=== PATIENT | male | born 1975 ===

== ENCOUNTER 2018-01-29 18:26 | Emergency (ER) | payer MEDICAID ==
--- NOTE | 2018-01-29 18:42 | Emergency Department Record ---
History of Present Illness - General Chief Complaint: Ankle/Foot Injury Stated Complaint: LT ANKLE PAIN/SWELLING Time Seen by Provider: 01/29/18 18:39 Source: Patient Mode of Arrival: Wheelchair Limitations: No limitations - History of Present Illness Initial Comments: 42 yo male presents with a left ankle injury. He fell down 4 steps. No knee or foot pain. No deformity. He has isolated ankle pain. No foot or Achilles pain. No other complaints or injuries. The patient declined pain medication at this time. Pain is controlled. PCP is the [facility]. MD Complaint: Ankle injury Onset/Timin -: Hour(s) Injury: Ankle: Left Type of Injury: Unknown Place: Home Severity: Moderate Severity scale (1-10): 9 Improves With: Immobilization, Rest Worsens With: Weight bearing Context: Walking Associated Symptoms: Swelling, Able to partially bear weight - Related Data Home Medications Medication Instructions Recorded Confirmed Last Taken No Home Med [NO HOME MEDS] 01/29/18 01/29/18 Unknown Allergies Allergy/AdvReac Type Severity Reaction Status Date / Time No Known Allergies Allergy PT UNSURE Unverified 01/29/18 18:31 OF REACTION Travel Screening - Travel/Exposure Within Last 30 Days Have you traveled within the last 30 days?: No - Travel/Exposure Within Last Year Have you traveled outside the [place] in the last year?: No - Additonal Travel Details Have you been exposed to anyone with a communicable illness?: No - Travel Symptoms Symptom Screening: None Past Medical History - SOCIAL HISTORY Smoking Status: Current every day smoker Alcohol Use: None Drug Use: None - RESPIRATORY Hx Respiratory Disorders: No - CARDIOVASCULAR Hx Cardio Disorders: No - NEURO Hx Neuro Disorders: No - GI Hx GI Disorders: No - Hx Genitourinary Disorders: No - ENDOCRINE Hx Endocrine Disorders: No - MUSCULOSKELETAL Hx Musculoskeletal Disorders: No - PSYCH Hx Psych Problems: No - HEMATOLOGY/ONCOLOGY Hx Hematology/Oncology Disorders: No Family Medical History Any Significant Family History?: Yes Hx Cancer: Father, Mother Physical Exam - General General Appearance: Alert, Oriented x3, Cooperative, No acute distress Limitations: No limitations - Head Head exam: Atraumatic, Normal inspection - Eye Eye exam: Normal appearance. negative: Conjunctival injection - ENT ENT exam: Normal exam Ear exam: Normal external inspection Nasal Exam: Normal inspection Mouth exam: Normal external inspection - Neck Neck exam: Normal inspection. negative: Tenderness - Cardiovascular Peripheral Pulses: 2+: Dorsalis Pedis (L) - Rectal Rectal exam: Deferred - exam: Deferred - Extremities Extremities exam: Normal inspection, Full ROM, Joint swelling, Normal capillary refill, Tenderness Image of Feet: 1 - mild diffuse ankle swelling, achilles intact and non tender, no foot tenderness, no 5th MT tenderness, intact skin - Neurological Neurological exam: Alert, Oriented X3 - Psychiatric Psychiatric exam: Normal affect, Normal mood - Skin Skin exam: Dry, Intact, Normal color, Warm Course Vital Signs 01/29/18 18:32 Temperature 98.6 F Pulse Rate 102 H Respiratory 18 Rate Blood Pressure 127/74 Pulse Ox 97 - Reevaluation(s) Reevaluation #1: 01/29/18 19:29 XR read as irregularity of the talus, may represent age indeterminate fracture CT ordered 01/29/18 20:[address] is negative for fracture. The XR findings are non acute. Gel Splint provided as well as home instructions 01/29/18 The patient has crutches at home if needed Disposition Disposition: Discharge Clinical Impression: Ankle sprain Qualifiers: Encounter type: initial encounter Involved ligament of ankle: unspecified ligament Laterality: left Qualified Code(s): S93.402A - Sprain of unspecified ligament of left ankle, initial encounter Disposition: Home, Self-Care Condition: (1) Good Instructions: Ankle Sprain (ED) Additional Instructions: Ice the ankle 4 times daily Elevate the leg to minimize swelling Use the air splint for support and comfort Be seen if your ankle remains painful in the next 7-10 days. Forms: Patient Portal Access Time of Disposition: 20:46 Quality - Quality Measures Quality Measures: N/A - Blood Pressure Screening Does Patient Have Any of the Following: No Blood Pressure Classification: Pre-Hypertensive BP Reading Systolic Measurement: 125 Diastolic Measurement: 71 Screening for High Blood Pressure: < Pre-Hypertensive BP, F/U Documented > [ [id number]] Pre-Hypertensive Follow-up Interventions: Referral to alternative/primary care provider.
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
== END 2018-01-29 20:58 | disposition home or self-care (01) ==
LOC: ER 18:26
DX: S92.402A Displaced unspecified fracture of left great toe, initial encounter for closed fracture (principal); W10.9XXA Fall (on) (from) unspecified stairs and steps, initial encounter; Y92.009 Unspecified place in unspecified non-institutional (private) residence as the place of occurrence of the external cause; F17.210 Nicotine dependence, cigarettes, uncomplicated
CPT/HCPCS: 99283